=== PATIENT | male | born 1965 | race Caucasian/White ===

== ENCOUNTER 2021-07-26 19:08 | Emergency (ER) | payer BC ==
[~2021-07-26] VITALS: Ht 180.3 cm; Wt 94.3 kg
[2021-07-26] MEDS ORDERED: FLOMAX0.4 MG PO (19:19)
[2021-07-26] MEDS ORDERED: LIPITOR10 MG PO (19:20)
[2021-07-26] MEDS ORDERED: PEPCID40 MG PO (23:41)
[2021-07-26] MEDS ORDERED: PREDNISONE 20 M20 M1 PO (23:41)
[2021-07-27 00:05] VITALS: BP 144/90
== END 2021-07-27 00:06 | disposition home or self-care (01) ==
LOC: M.ERS 19:08
DX: T63.461A Toxic effect of venom of wasps, accidental (unintentional), initial encounter (principal); L50.8 Other urticaria; L29.9 Pruritus, unspecified; E78.5 Hyperlipidemia, unspecified; Z79.899 Other long term (current) drug therapy; Z88.1 Allergy status to other antibiotic agents; Y92.89 Other specified places as the place of occurrence of the external cause